=== PATIENT | female | born 1970 | race Caucasian/White ===

== ENCOUNTER 2023-11-12 12:18 | Emergency (ER) | payer MEDICAID ==
[~2023-11-12] VITALS: Ht 157.5 cm; Wt 66.7 kg
[2023-11-12 13:23] VITALS: BP 104/52; PULSE 58; RESP 18; TEMP 98; O2SAT 98
[2023-11-12 14:10] LABS: BILIRUBIN,URINE NEGATIVE (Neg); CLARITY,URINE CLOUDY (Clear); COLOR,URINE YELLOW (Yellow); GLUCOSE, URINE NEGATIVE (Neg); KETONES,URINE NEGATIVE (Neg); LEUKOCYTE ESTERASE ,URINE LARGE (Neg); NITRITES, URINE NEGATIVE (Neg); OCCULT BLOOD,URINE SMALL (Neg); PROTEIN,URINE NEGATIVE (Neg); UROBILINOGEN,URINE 0.2 E.U/dL (0.2-1.0)
[2023-11-12 14:13] LABS: UA COLLECTION TYPE CLN CATCH MIDSTREAM
[2023-11-12 14:15] LABS: SQUAMOUS EPITHELIAL CELL,UR FEW /LPF (FEW); WBC CLUMPS,URINE MANY /HPF (NEGATIVE); WBC,URINE TNTC /HPF (0-4)
[2023-11-12 14:16] LABS: BACTERIA,URINE 1+ /HPF (Neg); TRANSITIONAL EPI CELLS,URINE FEW /HPF
[2023-11-12] MEDS ORDERED: CEFD300C3 PO (14:23)
== END 2023-11-12 14:35 | disposition home or self-care (01) ==
LOC: ER 12:19
DX: N39.0 Urinary tract infection, site not specified (principal); Z88.0 Allergy status to penicillin; Z88.2 Allergy status to sulfonamides; Z79.899 Other long term (current) drug therapy; Z91.040 Latex allergy status
CPT/HCPCS: 81001; 87077; 87088; 87186; 99283

== ENCOUNTER 2024-02-04 10:42 | Emergency (ER) | payer MEDICAID ==
[~2024-02-04] VITALS: Ht 157.5 cm; Wt 59.1 kg
[2024-02-04 11:06] VITALS: BP 126/84; PULSE 67; RESP 18; TEMP 97.3; O2SAT 100
[2024-02-04 11:26] LABS: BILIRUBIN,URINE NEGATIVE (Neg); CLARITY,URINE CLEAR (Clear); COLOR,URINE YELLOW (Yellow); GLUCOSE, URINE NEGATIVE (Neg); KETONES,URINE NEGATIVE (Neg); LEUKOCYTE ESTERASE ,URINE NEGATIVE (Neg); NITRITES, URINE NEGATIVE (Neg); OCCULT BLOOD,URINE NEGATIVE (Neg); PROTEIN,URINE NEGATIVE (Neg); UROBILINOGEN,URINE 0.2 E.U/dL (0.2-1.0)
[2024-02-04 11:39] LABS: UA COLLECTION TYPE CLN CATCH MIDSTREAM
[2024-02-04] MEDS ORDERED: LEVO-65 PO (11:55)
== END 2024-02-04 12:14 | disposition home or self-care (01) ==
LOC: ER 10:43
DX: R30.0 Dysuria (principal); Z91.040 Latex allergy status; Z88.0 Allergy status to penicillin; Z88.2 Allergy status to sulfonamides; Z91.018 Allergy to other foods
CPT/HCPCS: 81003; 99283